=== PATIENT | female | born 1935 | race Caucasian/White ===

== ENCOUNTER 2018-04-25 18:27 | Emergency (ER) | payer MEDICARE, OTHER ==
[2018-04-25] MEDS ORDERED: Diazepam 5 MG TAB ONE (18:59)
[2018-04-25] MEDS ORDERED: Ondansetron ODT 4 MG TAB ONE (19:00)
[2018-04-25] MEDS ORDERED: Ketorolac Tromethamine 30 MG/ML VIAL ONE (19:00)
== END 2018-04-25 19:17 | disposition home or self-care (01) ==
LOC: MADERS 18:27
DX: M54.5 Low back pain (principal); F32.9 Major depressive disorder, single episode, unspecified; G25.81 Restless legs syndrome; Z79.899 Other long term (current) drug therapy; X50.9XXA Other and unspecified overexertion or strenuous movements or postures, initial encounter
CPT/HCPCS: 96374; J1885; Q0162